=== PATIENT | female | born 1980 | race African-American/Black ===

== ENCOUNTER 2018-05-22 09:22 | Emergency (ER) | payer BC ==
[2018-05-22] MEDS ORDERED: Sodium Chloride 0.9% 10 ML Syringe FLUSH PRN (09:37)
[2018-05-22] MEDS ORDERED: Sodium Chloride 0.9% 1,000 ML IV ONE (09:37)
[2018-05-22] MEDS ORDERED: Ondansetron 4 MG/2 ML SDV IVPUSH ONE (09:51)
--- NOTE | 2018-05-22 10:06 | EDM.PDOC ---
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 Patient was approximately 9 weeks on May 13 when she had her ultrasound and found out that there were no heart tones. The AIR DRIER MACHINE OPERATOR stated that within a week or 2 that she would begin to have a miscarriage. Patient states she started bleeding yesterday and didn't notice major cramping initially and bleeding was pretty minimal with small amount of clots. However mid afternoon she ended up sitting on the toilet for an extended period of time with large amount of blood coming out. She states she had 2 episodes between yesterday and today were fragments of the fetus were expelled she believes. She states this morning she became so weak and dizzy that she fell over in bed because she felt so faint, weak and dizzy. She did have a feminine pad on this am and that soaked through, the blood also soaked through her clothes and a chucks pad on her bed was completely saturated when one of the "gushes of blood episodes occurred". Patient states that she is dizzy, clammy, fatigued, and severely nauseated. She denies any abdominal discomfort currently however she states that she had severe abdominal discomfort during the night and cramping sensations to lower back. She ended up taking Aleve to help with the discomfort. Her has infertility problems this was the first IF attempt. They did do IF treatment for years ago with result having twins Onset: Sudden - Related Data Allergies Allergy/AdvReac Type Severity Reaction Status Date / Time No Known Allergies Allergy Verified 05/22/18 09:29 Home Meds: Home Meds . 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: Reports: Social & Family History - Tobacco Use Smoking Status *Q: Unknown Ever Smoked ED ROS GENERAL - Review of Systems Review Of Systems: See Below Constitutional: Reports: Weakness, Fatigue HEENT: Reports: No Symptoms Respiratory: Reports: No Symptoms Cardiovascular: Reports: No Symptoms GI/Abdominal: Reports: Nausea : Reports: Discharge, Other (vaginal bleeding) Musculoskeletal: Reports: No Symptoms Skin: Reports: Pallor Neurological: Reports: No Symptoms Psychiatric: Reports: No Symptoms Hematologic/Lymphatic: Reports: No Symptoms Immunologic: Reports: No Symptoms ED EXAM, GENERAL - Physical Exam Exam: See Below Exam Limited By: No Limitations General Appearance: Alert, WD/WN, No Apparent Distress Head: Atraumatic, Normocephalic Neck: Normal Inspection, Supple, Non-Tender, Full Range of Motion Respiratory/Chest: No Respiratory Distress, Lungs Clear, Normal Breath Sounds, No Accessory Muscle Use, Chest Non-Tender Cardiovascular: Normal Peripheral Pulses, Regular Rate, Rhythm, No Edema, No Murmur, Tachycardia Peripheral Pulses: 3+: Radial (L), Radial (R), Dorsalis Pedis (L), Dorsalis Pedis (R) GI/Abdominal: Normal Bowel Sounds, Soft, Non-Tender, No Distention Back Exam: Normal Inspection, Full Range of Motion Extremities: Normal Inspection, Normal Range of Motion, Non-Tender, No Pedal Edema, Normal Capillary Refill Neurological: Alert, Oriented, Normal Cognition, Normal Gait Psychiatric: Normal Affect, Normal Mood Skin Exam: Intact, No Rash, Pallor Course - Vital Signs Last Recorded V/S: Last Vital Signs Temp 36.7 C 05/22/18 09:22 Pulse 94 05/22/18 12:05 Resp 12 05/22/18 12:05 BP 112/70 05/22/18 12:05 Pulse Ox 99 05/22/18 12:05 - Orders/Labs/Meds Orders: Active Orders 24 hr Category Date Time Status Sodium Chloride 0.9% [Saline Flush] Med 05/22/18 09:37 Active 10 ml FLUSH ASDIRECTED PRN Peripheral IV Insertion Adult [OM.PC] Stat Oth 05/22/18 09:37 Ordered Medication Orders Sodium Chloride (Saline Flush) 10 ml FLUSH ASDIRECTED PRN PRN Reason: Keep Vein Open Labs: Laboratory Tests 05/22/18 05/22/18 Range/Units 09:35 09:35 WBC 9.1 (4.0-10.0) x10^3/uL RBC 3.18 L (4.00-5.50) x10^6/uL Hgb 9.7 L (12.0-16.0) g/dL Hct 30.4 L (33.0-47.0) % MCV 95.6 H (78.0-93.0) fL MCH 30.5 (26.0-32.0) pg MCHC 31.9 L (32.0-36.0) g/dL RDW Coeff of Zach 12.5 (10.0-15.0) % Plt Count 397 (130-400) x10^3/uL Neut % (Auto) 77.4 (50.0-80.0) % Lymph % (Auto) 15.6 L (25.0-50.0) % [place] % (Auto) 6.8 (2.0-11.0) % Eos % (Auto) 0.1 (0.0-4.0) % Baso % (Auto) 0.1 L (0.2-1.2) % Sodium 137 (136-145) mmol/L Potassium 3.8 (3.5-5.1) mmol/L Chloride 103 (98-107) mmol/L Carbon Dioxide 25 (21-32) mmol/L Anion Gap 12.8 (10-20) mmol/L BUN 9 (7-18) mg/dL Creatinine 0.7 (0.55-1.02) mg/dL Est Cr Clr Drug Dosing TNP Estimated GFR (MDRD) > 60 Glucose 124 H (74-106) mg/dL Calcium 9.1 (8.5-10.1) mg/dL Corrected Calcium 9.50 (8.5-10.1) mg/dL Total Bilirubin 0.6 (0.2-1.0) mg/dL AST 12 L (15-37) U/L ALT 17 (14-59) U/L Alkaline Phosphatase 64 (46-116) U/L Total Protein 8.1 (6.4-8.2) g/dL Albumin 3.5 (3.4-5.0) g/dL Globulin 4.6 Albumin/Globulin Ratio 0.76 Meds: Medications Generic Name Dose Route Start Last Admin Trade Name Freq PRN Reason Stop Dose Admin Sodium Chloride 10 ml 05/22/18 09:37 Saline Flush FLUSH ASDIRECTED PRN Keep Vein Open Discontinued Medications Generic Name Dose Route Start Last Admin Trade Name Freq PRN Reason Stop Dose Admin Sodium Chloride 1,000 mls @ 1,000 mls/hr 05/22/18 09:37 05/22/18 09:35 Normal Saline IV 01/12/19 10:36 1,000 mls/hr ONETIME ONE Administration Methylergonovine Maleate 0.2 mg 05/22/18 10:43 05/22/18 10:57 Methergine IM 05/22/18 10:44 0.2 mg ONETIME ONE Administration Ondansetron HCl 4 mg 05/22/18 09:51 05/22/18 09:57 Zofran IVPUSH 05/22/18 09:52 4 mg ONETIME ONE Administration Departure - Departure Time of Disposition: 13:30 Disposition: Home, Self-Care 01 Condition: Good Clinical Impression: Vaginal bleeding, Miscarriage - Discharge Information *PRESCRIPTION DRUG MONITORING PROGRAM REVIEWED*: Not Applicable *COPY OF PRESCRIPTION DRUG MONITORING REPORT IN PATIENT CANDELARIA: Not Applicable Instructions: Miscarriage, [id number] Referrals: Richmond Simmons MD [Primary Care Provider] - Forms: ED Department Discharge Additional Instructions: 1. rest 2. increase water intake 3. Return if large amount of bleeding occurs 4. Can take Tylenol or ibuprofen for pain and discomfort 5. Try and reduced amount of heavy lifting over the next 2-3 days 6. Call AIR DRIER MACHINE OPERATOR if any concerns continue and follow-up in the clinic 7. Can use ice or heat over the lower abdomen for any cramping sensations are to occur 8. Call with any questions or concerns - My Orders Last 24 Hours: My Active Orders 05/22/18 09:37 Sodium Chloride 0.9% [Saline Flush] 10 ml FLUSH ASDIRECTED PRN Peripheral IV Insertion Adult [OM.PC] Stat - Assessment/Plan Last 24 Hours: My Active Orders 05/22/18 09:37 Sodium Chloride 0.9% [Saline Flush] 10 ml FLUSH ASDIRECTED PRN Peripheral IV Insertion Adult [OM.PC] Stat Plan: 1. Labs completed in the ER. 2. IV fluids provided in the ER. 3. Consultation completed with AIR DRIER MACHINE OPERATOR Dr. Olivia [facility]. Suggestion is to monitor in Er for a few hours and see how she is doing. If bleeding persist patient should be transferred to higher level of care for further testing including ultrasound. It is also recommended to give methargen 0.2mg IV in the ER to help slow the bleeding. 4. Pt has had no significant bleeding events in the ER. VSS. Patient is feeling better and has been up walking in the ER and used the bathroom. Pt denies any pain or discomfort. She would like to be discharge 5. Pt was given information regarding signs and symptoms to watch and when to return to the ER. 6. Pt is advised to follow up with OBGYN this week 7. All questions and concerns answered prior to discharge
[2018-05-22 10:08] LABS: CHLORIDE,CL 103 mmol/L (98-107); SODIUM,NA 137 mmol/L (136-145)
[2018-05-22 10:10] LABS: ANION GAP 12.8 mmol/L (10-20)
[2018-05-22] MEDS ORDERED: Methylergonovine 0.2 MG/ML SDV IM ONE (10:43)
== END 2018-05-22 12:39 | disposition home or self-care (01) ==
LOC: VM.ED 09:22
DX: O03.9 Complete or unspecified spontaneous abortion without complication (principal)
CPT/HCPCS: 80053; 85025; 96361; 96372; 96374; 99284; J2210; J2405; J7030

== ENCOUNTER 2025-03-08 20:50 | Emergency (ER) | payer BC ==
[2025-03-08 21:40] LABS: BASOPHILS ABSOLUTE AUTO 0.0 x10^3/uL (0.0-0.2); BASOPHILS PERCENT AUTO 0.6 % (0.2-1.2); EOSINOPHILS ABSOLUTE AUTO 0.1 x10^3/uL (0.0-0.5); EOSINOPHILS PERCENT AUTO 1.0 % (0.0-4.0); IMMATURE GRAN ABSOLUTE AUTO 0.01 x10^3/uL (0.00-0.07); IMMATURE GRAN PERCENT AUTO 0.20 % (0.00-0.43); LYMPHOCYTES ABSOLUTE AUTO 1.8 x10^3/uL (1.0-4.8); LYMPHOCYTES PERCENT AUTO 36.2 % (25.0-50.0); MONOCYTES ABSOLUTE AUTO 0.5 x10^3/uL (0.0-0.8); MONOCYTES PERCENT AUTO 10.1 % (2.0-11.0); NEUTROPHILS ABSOLUTE AUTO 2.5 x10^3/uL (1.8-7.7); NEUTROPHILS PERCENT AUTO 51.9 % (50.0-80.0); PLATELET COUNT,PLT 336 x10^3/uL (130-400); RED BLOOD CELL COUNT 3.47 x10^6/uL (4.00-5.50); WHITE BLOOD CELL COUNT,WBC 4.8 x10^3/uL (4.0-10.0)
[2025-03-08 22:00] LABS: A/G RATIO 0.85; ALANINE AMINOTRANSFERASE,ALT 18.0 U/L (14-59); ASPARTATE AMNIOTRANSFERASE,AST 16.0 U/L (15-37); BILIRUBIN TOTAL 0.6 mg/dL (0.2-1.0); BLOOD UREA NITROGEN,BUN 14.0 mg/dL (7-18); CARBON DIOXIDE,CO2 28.0 mmol/L (21-32); CHLORIDE,CL 102.0 mmol/L (98-107); CREATININE 0.7 mg/dL (0.55-1.02); EST CRCL DRUG DOSING (CG) 109.41 mL/min; ESTIMATED GFR 111.0 mL/min (>=60); GLUCOSE RANDOM 103.0 mg/dL (70-99); POTASSIUM,K 3.6 mmol/L (3.5-5.1); PROTEIN TOTAL,TP 7.6 g/dL (6.4-8.2); SODIUM,NA 140.0 mmol/L (136-145)
== END 2025-03-08 22:18 | disposition home or self-care (01) ==
LOC: VM.ED 20:50
DX: R07.1 Chest pain on breathing (principal); Z79.899 Other long term (current) drug therapy
CPT/HCPCS: 36415; 80053; 84484; 85025; 93005; 99285; A9270